=== PATIENT | female | born 1955 | race Hispanic/Latino ===

== ENCOUNTER 2021-06-16 21:02 | Inpatient (IN) | payer MEDICARE ==
[2021-06-16] MEDS ORDERED: MORPHINE 4 MG/1 ML INJ IV ONE (22:13)
[2021-06-16] MEDS ORDERED: SODIUM CHLORIDE 0.9% 1000 ML 1,000 ML IV ONE (22:13)
--- NOTE | 2021-06-16 22:24 | Emergency Department Report ---
ED Female HPI - General Chief complaint: Abdominal Pain Stated complaint: BACK AND ABD PAIN Source: patient, EMS Mode of arrival: Stretcher Limitations: No Limitations - History of Present Illness Initial comments: Patient is a 55-year-old female who presents to the emergency department with complaints of bilateral flank pain, dark urine. Patient states that she has a history of previous bladder cancer and resultant removal of her bladder approximately 3 years ago. She does not currently have a urologist that she follows with. She states her urine was dark for about a day and a half but here her urine appears yellow. She denies any fevers or chills. She also reports she has had some abdominal pain. Symptoms have been present and total for approximately 4 days. - Related Data Allergies Allergy/AdvReac Type Severity Reaction Status Date / Time NSAIDS (Non-Steroidal Allergy Nausea Verified 06/17/21 01:02 Anti-Inflamma Penicillins Allergy Nausea Verified 06/17/21 01:02 ED Review of Systems ROS: Stated complaint: BACK AND ABD PAIN Other details as noted in HPI Constitutional: denies: chills, fever ENT: denies: dental pain Respiratory: denies: cough, shortness of breath Cardiovascular: denies: chest pain Endocrine: no symptoms reported Gastrointestinal: abdominal pain. denies: nausea Genitourinary: denies: urgency, dysuria Musculoskeletal: back pain Skin: denies: rash Neurological: denies: headache, weakness Psychiatric: denies: anxiety, depression Hematological/Lymphatic: denies: easy bleeding ED Past Medical Hx - Past Medical History Previous Medical History?: Yes Hx Hypertension: Yes Additional medical history: Kidney, [place] - Surgical History Past Surgical History?: Yes Additional Surgical History: Back surgery, Knee surgery, Hip surgery with a bar - Social History Smoking Status: Current Every Day Smoker Substance Use Type: None ED Physical Exam - General Limitations: No Limitations General appearance: alert, in no apparent distress - Head Head exam: Present: atraumatic, normocephalic - Eye Eye exam: Present: normal appearance - ENT ENT exam: Present: mucous membranes moist - Neck Neck exam: Present: normal inspection - Respiratory Respiratory exam: Present: normal lung sounds bilaterally. Absent: respiratory distress - Cardiovascular Cardiovascular Exam: Present: regular rate, normal rhythm. Absent: systolic murmur, diastolic murmur, rubs, gallop - GI/Abdominal GI/Abdominal exam: Present: soft, tenderness (RLQ), other (urostomy noted). Absent: distended, guarding, rebound, rigid - Rectal Rectal exam: Present: deferred - Extremities Exam Extremities exam: Present: normal inspection - Back Exam Back exam: Present: CVA tenderness (R), CVA tenderness (L) - Neurological Exam Neurological exam: Present: alert, oriented X3 - Psychiatric Psychiatric exam: Present: normal affect, normal mood - Skin Skin exam: Present: warm, dry, intact, normal color. Absent: rash ED Course Vital Signs 06/16/21 06/16/21 06/16/21 21:30 22:15 22:39 Temperature 98.6 F Pulse Rate 84 73 Respiratory 18 17 18 Rate Blood Pressure 120/80 Blood Pressure 106/79 [Left] O2 Sat by Pulse 96 Oximetry 06/16/21 06/16/21 06/16/21 22:45 23:00 23:09 Temperature Pulse Rate 75 79 Respiratory 9 L 16 18 Rate Blood Pressure 125/74 125/74 Blood Pressure [Left] O2 Sat by Pulse Oximetry 06/17/21 00:10 Temperature Pulse Rate Respiratory 18 Rate Blood Pressure Blood Pressure [Left] O2 Sat by Pulse Oximetry - Reevaluation(s) Reevaluation #1: 06/17/21 01:18 Patient still reporting pain and nausea. Also states that she feels like she cannot walk due to pain. Urinalysis does reveal leukocytes in the urine. Pyelo is considered given flank pain. Antibiotics ordered. I have also spoken with the hospitalist team for admission. ED Medical Decision Making - Lab Data Result diagrams: 06/16/21 23:01 06/16/21 23:01 - Radiology Data Radiology results: report reviewed - Medical Decision Making Patient is a 65-year-old female with history of previous cystectomy due to bladder cancer who presents to the emergency department complaint of flank and abdominal pain as well as dark urine. Differential includes pyelonephritis, nephrolithiasis. Dehydration is also considered. Patient also states she has a history of stage III chronic kidney disease. Plan to give IV fluids and pain control obtain basic labs including urine culture and urinalysis from a clean urostomy bag. Patient does not appear to be septic at this time as she has no fever or tachycardia. Will reassess after initial labs. Critical care attestation.: If time is entered above; I have spent that time in minutes in the direct care of this critically ill patient, excluding procedure time. ED Disposition Clinical Impression: Pyelonephritis, Abdominal pain, Nausea and vomiting Disposition: OP ADMIT IP TO THIS HOSP Is pt being admited?: Yes Does the pt Need Aspirin: No Condition: Stable Instructions: Abdominal Pain (ED) Referrals: PRIMARY CARE, [Primary Care Provider] - 3-5 Days Time of Disposition: 01:00
[2021-06-16 23:33] LABS: Basophils # (Auto) 0.1 K/mm3 (0.0-0.1); Basophils % (Auto) 0.6 % (0.0-1.8); Eosinophils # (Auto) 0.4 K/mm3 (0.0-0.4); Eosinophils % (Auto) 4.5 % (0.0-4.3); Hemoglobin 14.7 gm/dl (10.1-14.3); Lymphocytes # (Auto) 1.8 K/mm3 (1.2-5.4); Lymphocytes % (Auto) 20.4 % (13.4-35.0); Mean Corpuscular HGB Conc 34 % (30-34); Mean Corpuscular Volume 91 fl (79-97); Monocytes % (Auto) 11.2 % (0.0-7.3); Platelet Count 159 K/mm3 (140-440); Red Blood Count 4.82 M/mm3 (3.65-5.03); Red Cell Distribution Width 15.8 % (13.2-15.2)
[2021-06-16 23:54] LABS: Albumin 3.9 g/dL (3.9-5); Calcium 9.7 mg/dL (8.4-10.2)
--- NOTE | 2021-06-16 23:59 | Cat Scan Report ---
CT ABDOMEN AND PELVIS WITHOUT CONTRAST INDICATION / CLINICAL INFORMATION: Complains of bi-lateral flank pain; Hx of bladder cancer removal. Dark urine. TECHNIQUE: Axial CT images were obtained through the abdomen and pelvis without IV contrast. All CT scans at this location are performed using CT dose reduction for ALARA by means of automated exposure control. COMPARISON: None available. FINDINGS: LOWER CHEST: No significant abnormality. LIVER: No significant abnormality. GALLBLADDER: Cholecystectomy. BILE DUCTS: There is mild biliary dilatation. The common bile duct measures 11 mm. there is mild intr ahepatic biliary dilatation. PANCREAS: No significant abnormality. SPLEEN: There are 2 hypodensities in the spleen. Superior hypodensity measures water density and 2 cm and is likely a cyst. More inferior measures 1.9 cm and 22 Hounsfield units and is indeterminate. ADRENALS: No significant abnormality. RIGHT KIDNEY / URETER: No acute abnormality. There is an ileal conduit on the right. LEFT KIDNEY / URETER: Severely atrophic STOMACH / SMALL BOWEL: No acute abnormality. COLON: No significant abnormality. APPENDIX: Not visualized. PERITONEUM: No free fluid. No free air. No fluid collection. LYMPH NODES: No significant adenopathy. AORTA / ARTERIES: Mild atherosclerotic calcification without acute abnormality. IVC / VEINS: No significant abnormality. URINARY BLADDER: Prior cystectomy. There is an ileal conduit REPRODUCTIVE ORGANS: No significant abnormality. ADDITIONAL FINDINGS: None. SKELETAL SYSTEM: No acute abnormality. IMPRESSION: 1. There is no obstruction, inflammation, or free air. The left kidney is severely atrophic. No renal calculi are seen. There is no hydronephrosis. The patient has an ileal conduit. 2. There are 2 hypodensities in the spleen one of which measures water density and is likely a cyst. The other measures above water density and is indeterminate. Signer Name: Samuel Gamboa MD Signed: 06/16/2021 11:55 PM Workstation Name: [id number]
[2021-06-17] MEDS ORDERED: MORPHINE 4 MG/1 ML INJ IV ONE (00:03)
[2021-06-17 00:30] LABS: Bacteria,Urine 1+ /HPF (Negative); Bilirubin,Urine NEG (Negative); Blood,Urine LG (Negative); Color,Urine Yellow (Yellow); Hyaline Casts,Urine 1 /LPF; Mucus,Urine FEW /HPF; Urobilinogen,Urine < 2.0 mg/dL (<2.0)
[2021-06-17] MEDS ORDERED: AZTREONAM/NS 1 GM/50 ML 1 GM/50 ML VIAL IV ONE (00:59)
[2021-06-17] MEDS ORDERED: MORPHINE 2 MG/1 ML INJ IV PRN (01:28)
[2021-06-17] MEDS ORDERED: ACETAMINOPHEN 325 MG TAB PO PRN (01:28)
[2021-06-17] MEDS ORDERED: ALBUTEROL 2.5 MG/3 ML NEBU IH PRN (01:28)
[2021-06-17] MEDS ORDERED: NALOXONE 0.4 MG/1 ML INJ IV PRN (01:28)
[2021-06-17] MEDS ORDERED: cefTRIAXone/NS 1 GM/50 ML 1 GM/50 ML BAG IV SCH (02:00)
--- NOTE | 2021-06-17 02:27 | History and Physical Report ---
History of Present Illness Date of examination: 06/17/21 Date of admission: 06/17/21 01:28 Chief complaint: Bilateral flank pain, discolored urine History of present illness: 65-year-old female who is an ongoing smoker with history of hypertension, bladder cancer, kidney cancer, anxiety/depression and chronic lower back and hip pain who presents [facility] ED with complaints of bilateral flank pain, abdominal pain and discolored urine. Patient states she has been experiencing dark discolored urine in her urostomy bag for the past 4 days. Denies any recent injury/trauma to urostomy site/stoma, or foul smelling urine. Additionally she complains of 8/10 constant sharp bilateral CVA pain and right lower quadrant 7/10 intermittent cramping abdominal pain unrelieved by pain meds. Patient does have history of bladder cancer and is s/p removal of her aleah dder approximately 3 years ago. Her primary care physician is Dr. Cesar Wang. She does not currently have a urologist. Endorses: nausea, abdominal pain, dark discolored urine Denies: Fever, chills, headache, shortness of breath, chest pain, recent injury to stoma site, melena, hematochezia, hemoptysis, or recent sick contacts Past History Past Medical History: hypertension, other (CKD stage III, anxiety, depression, bladder cancer, kidney cancer, chronic lower back and leg pain) Past Surgical History: cholecystectomy, hernia repair, Other (Knee surgery, back surgery x5, hip surgery with bar, cystectomy, urostomy) Social history: single, smoking (Smokes half pack a day), other (Living with friends at the moment) Family history: hypertension Medications and Allergies Allergies Allergy/AdvReac Type Severity Reaction Status Date / Time NSAIDS (Non-Steroidal Allergy Nausea Verified 06/17/21 01:02 Anti-Inflamma Penicillins Allergy Nausea Verified 06/17/21 01:02 Active Meds: Active Medications Acetaminophen (Acetaminophen 325 Mg Tab) 650 mg PO Q4H PRN PRN Reason: Pain MILD(1-3)/Fever >100.5/CUADRA Albuterol (Albuterol 2.5 Mg/3 Ml Nebu) 2.5 mg IH Q3HRT PRN PRN Reason: Shortness Of Breath Docusate Sodium (Docusate Sodium 100 Mg Cap) 100 mg PO BID EZEKIEL Heparin Sodium (Porcine) (Heparin 5,000 Unit/1 Ml Vial) 5,000 unit SUB-Q Q12HR EZEKIEL Hydromorphone HCl (Hydromorphone 1 Mg/1 Ml Inj) 0.5 mg IV Q4H PRN PRN Reason: Pain , Severe (7-10) Ceftriaxone Sodium (Rocephin/Ns 1 Gm/50 Ml) 1 gm in 50 mls @ 100 mls/hr IV Q24H EZEKIEL; Protocol Morphine Sulfate (Morphine 2 Mg/1 Ml Inj) 2 mg IV Q6H PRN PRN Reason: Pain, Moderate (4-6) Naloxone HCl (Naloxone 0.4 Mg/1 Ml Inj) 0.1 mg IV Q2MIN PRN PRN Reason: Res Rate </= 8 or 02 SAT < 92% Nicotine (Nicotine 14 Mg/24 Hr Patch) 14 mg TD QDAY [facility] Ondansetron HCl (Ondansetron 4 Mg/2 Ml Inj) 4 mg IV Q6H PRN PRN Reason: Nausea And Vomiting Sodium Chloride (Sodium Chloride 0.9% 10 Ml Flush Syringe) 10 ml IV BID [facility] Sodium Chloride (Sodium Chloride 0.9% 10 Ml Flush Syringe) 10 ml IV PRN PRN PRN Reason: LINE FLUSH Review of Systems All systems: negative (As noted in HPI) Exam - Physical Exam Narrative exam: Physical exam General appearance: Present: Looks older than stated age, no acute distress, alert and oriented 3, older adult female - EENT Eyes: Present: PERRL, EOM intact ENT: hearing intact, missing teeth - Neck Neck: Present: supple, normal ROM - Respiratory Respiratory effort: Non-labored Respiratory: Clear throughout - Cardiovascular Heart rate: 85 (bpm) Rhythm: Sinus Heart Sounds: Present: S1 & S2. Absent: rub, click - Extremities Extremities: no ischemia, pulses intact, - Peripheral Assessment Peripheral Pulses: within normal limits - Abdominal General gastrointestinal: Right upper quadrant urostomy with pink/red moist stoma, soft, right lower quadrant tenderness, normal bowel sounds - Integumentary Integumentary: Present: warm, dry - Musculoskeletal Musculoskeletal: Able to move all extremities, bilateral CVA tenderness -Neurological Neurological: CN II-XII intact - Psychiatric Psychiatric: cooperative - Constitutional Vitals: Temp Pulse Resp BP Pulse Ox 98.6 F 74 11 L 106/64 96 07/20/21 21:30 06/17/21 02:01 06/17/21 01:45 06/17/21 02:01 06/16/21 21:30 Results - Labs CBC & Chem 7: 06/16/21 23:01 06/16/21 23:01 Labs: Laboratory Last Values WBC 8.7 K/mm3 (4.5-11.0) 06/16/21 23:01 RBC 4.82 M/mm3 (3.65-5.03) 06/16/21 23:01 Hgb 14.7 gm/dl (10.1-14.3) H 06/16/21 23:01 Hct 44.0 % (30.3-42.9) H 06/16/21 23:01 MCV 91 fl (79-97) 06/16/21 23:01 MCH 31 pg (28-32) 06/16/21 23:01 MCHC 34 % (30-34) 06/16/21 23:01 RDW 15.8 % (13.2-15.2) H 06/16/21 23:01 Plt Count 159 K/mm3 (140-440) 06/16/21 23:01 Lymph % (Auto) 20.4 % (13.4-35.0) 06/16/21 23:01 [place] % (Auto) 11.2 % (0.0-7.3) H 06/16/21 23:01 Eos % (Auto) 4.5 % (0.0-4.3) H 06/16/21 23:01 Baso % (Auto) 0.6 % (0.0-1.8) 06/16/21 23:01 Lymph # (Auto) 1.8 K/mm3 (1.2-5.4) 06/16/21 23:01 [place] # (Auto) 1.0 K/mm3 (0.0-0.8) H 06/16/21 23:01 Eos # (Auto) 0.4 K/mm3 (0.0-0.4) 06/16/21 23:01 Baso # (Auto) 0.1 K/mm3 (0.0-0.1) 06/16/21 23:01 Seg Neutrophils % 63.3 % (40.0-70.0) 06/16/21 23:01 Seg Neutrophils # 5.5 K/mm3 (1.8-7.7) 06/16/21 23:01 Sodium 140 mmol/L (137-145) 06/16/21 23:01 Potassium 3.7 mmol/L (3.6-5.0) 06/16/21 23:01 Chloride 102.9 mmol/L (98-107) 06/16/21 23:01 Carbon Dioxide 26 mmol/L (22-30) 06/16/21 23:01 Anion Gap 15 mmol/L 06/16/21 23:01 BUN 22 mg/dL (7-17) H 06/16/21 23:01 Creatinine 1.5 mg/dL (0.6-1.2) H 06/16/21 23:01 Estimated GFR 35 ml/min 06/16/21 23:01 BUN/Creatinine Ratio 15 % 06/16/21 23:01 Glucose 92 mg/dL (65-100) 06/16/21 23:01 Calcium 9.7 mg/dL (8.4-10.2) 06/16/21 23:01 Total Bilirubin 0.30 mg/dL (0.1-1.2) 06/16/21 23:01 AST 13 units/L (5-40) 06/16/21 23:01 ALT 12 units/L (7-56) 06/16/21 23:01 Alkaline Phosphatase 101 units/L (35-129) 06/16/21 23:01 Total Protein 7.4 g/dL (6.3-8.2) 06/16/21 23:01 Albumin 3.9 g/dL (3.9-5) 06/16/21 23:01 Albumin/Globulin Ratio 1.1 % 06/16/21 23:01 Urine Color Yellow (Yellow) 06/16/21 Unknown Urine Turbidity Hazy (Clear) 06/16/21 Unknown Urine pH 6.0 (5.0-7.0) 06/16/21 Unknown Ur Specific [place] 1.010 (1.003-1.030) 06/16/21 Unknown Urine Protein 100 mg/dl mg/dL (Negative) 06/16/21 Unknown Urine Glucose (UA) Neg mg/dL (Negative) 06/16/21 Unknown Urine Ketones Neg mg/dL (Negative) 06/16/21 Unknown Urine Blood Lg (Negative) 06/16/21 Unknown Urine Nitrite Neg (Negative) 06/16/21 Unknown Urine Bilirubin Neg (Negative) 06/16/21 Unknown Urine Urobilinogen < 2.0 mg/dL (<2.0) 06/16/21 Unknown Ur Leukocyte Esterase Lg (Negative) 06/16/21 Unknown Urine WBC (Auto) 54.0 /HPF (0.0-6.0) H 06/16/21 Unknown Urine RBC (Auto) 100.0 /HPF (0.0-6.0) 06/16/21 Unknown U Epithel Cells (Auto) 1.0 /HPF (0-13.0) 06/16/21 Unknown Urine Bacteria (Auto) 1+ /HPF (Negative) 06/16/21 Unknown Hyaline Casts 1 /LPF 06/16/21 Unknown Urine Mucus Few /HPF 06/16/21 Unknown - Imaging and Cardiology Imaging and Cardiology: CT Abd/Pelvis: FINDINGS: LOWER CHEST: No significant abnormality. LIVER: No significant abnormality. GALLBLADDER: Cholecystectomy. BILE DUCTS: There is mild biliary dilatation. The common bile duct measures 11 mm. there is mild intrahepatic biliary dilatation. PANCREAS: No significant abnormality. SPLEEN: There are 2 hypodensities in the spleen. Superior hypodensity measures water density and 2 cm and is likely a cyst. More inferior measures 1.9 cm and 22 Hounsfield units and is indeterminate. ADRENALS: No significant abnormality. RIGHT KIDNEY / URETER: No acute abnormality. There is an ileal conduit on the right. LEFT KIDNEY / URETER: Severely atrophic STOMACH / SMALL BOWEL: No acute abnormality. COLON: No significant abnormality. APPENDIX: Not visualized. PERITONEUM: No free fluid. No free air. No fluid collection. LYMPH NODES: No significant adenopathy. AORTA / ARTERIES: Mild atherosclerotic calcification without acute abnormality. IVC / VEINS: No significant abnormality. URINARY BLADDER: Prior cystectomy. There is an ileal conduit REPRODUCTIVE ORGANS: No significant abnormality. ADDITIONAL FINDINGS: None. SKELETAL SYSTEM: No acute abnormality. IMPRESSION: 1. There is no obstruction, inflammation, or free air. The left kidney is severely atrophic. No renal calculi are seen. There is no hydronephrosis. The patient has an ileal conduit. 2. There are 2 hypodensities in the spleen one of which measures water density and is likely a cyst. The other measures above water density and is indeterminate. Assessment and Plan Assessment and plan: Urinary tract infection -Complicated -?? Pyelonephritis -CT abdomen pelvis shows left kidney is severely atrophic; patient has an ileal conduit; 2 hypodensities in the spleen (one measures water density and is likely a cyst, and the other measures above water density and is indeterminate) -UA positive for UTI -urine wbc 54, leukocyte positive -Cultures pending -on IV Abx Intractable abdominal pain -CT abdomen pelvis negative for acute abnormalities -Pain management -Supportive care Tobacco abuse -Current every day smoker -Smokes half pack per day -Counseled for cessation -Nicotine patch when necessary History of chronic lower back and hip pain -Noted -Supportive care History of CKD stage III -Creatinine 1.5 on admission -Avoid nephrotoxic agents -Renal dose all meds DVT PPX -on Heparin
[2021-06-17] MEDS: HYDROmorphone 1 MG/1 ML INJ IV PRN ×3 (02:52→20:23)
[2021-06-17] MEDS: NICOTINE 14 MG/24 HR PATCH TD SCH ×2 (03:05→10:20)
--- NOTE | 2021-06-17 09:38 | Progress Note ---
Assessment and Plan Assessment and plan: Urinary tract infection/complicated and complex -Complicated -?? Pyelonephritis -CT abdomen pelvis shows left kidney is severely atrophic; patient has an ileal conduit; 2 hypodensities in the spleen (one measures water density and is likely a cyst, and the other measures above water density and is indeterminate) -UA positive for UTI -urine wbc 54, leukocyte positive -Cultures pending -on IV Abx Intractable abdominal pain -CT abdomen pelvis negative for acute abnormalities -Pain management -Supportive care Tobacco abuse -Current every day smoker -Smokes half pack per day -Counseled for cessation -Nicotine patch when necessary History of chronic lower back and hip pain -Noted -Supportive care History of CKD stage III -Creatinine 1.5 on admission -Avoid nephrotoxic agents -Renal dose all meds DVT PPX -on Heparin We will closely monitor the patient and adjust management as needed Plan of care reviewed with the patient and her nurse Follow cultures and adjust as needed History Interval history: I seen and examined the patient at the bedside Patient's chart and medications reviewed Admitted with complicated complex UTI On empiric antibiotics Patient is chronically and critically ill looking Vital signs noted Hospitalist Physical - Constitutional Vitals: Temp Pulse Resp BP Pulse Ox 98.3 F 83 20 92/56 94 06/17/21 04:21 06/17/21 04:21 06/17/21 04:21 06/17/21 06:38 06/17/21 04:21 General appearance: Present: no acute distress, well-nourished - EENT Eyes: Present: PERRL, EOM intact - Neck Neck: Present: supple, normal ROM - Respiratory Respiratory effort: normal Respiratory: bilateral: diminished, negative: rales, rhonchi, wheezing - Cardiovascular Rhythm: regular Heart Sounds: Present: S1 & S2 - Extremities Extremities: no ischemia, No edema - Abdominal General gastrointestinal: soft, non-tender, non-distended, normal bowel sounds - Integumentary Integumentary: Present: clear, warm - Psychiatric Psychiatric: appropriate mood/affect, cooperative - Neurologic Neurologic: CNII-XII intact, moves all extremities Results - Labs CBC & Chem 7: 06/16/21 23:01 06/17/21 14:39 Labs: Laboratory Last Values WBC 8.7 K/mm3 (4.5-11.0) 06/16/21 23:01 RBC 4.82 M/mm3 (3.65-5.03) 06/16/21 23:01 Hgb 14.7 gm/dl (10.1-14.3) H 06/16/21 23:01 Hct 44.0 % (30.3-42.9) H 06/16/21 23:01 MCV 91 fl (79-97) 06/16/21 23:01 MCH 31 pg (28-32) 06/16/21 23:01 MCHC 34 % (30-34) 06/16/21 23:01 RDW 15.8 % (13.2-15.2) H 06/16/21 23:01 Plt Count 159 K/mm3 (140-440) 06/16/21 23:01 Lymph % (Auto) 20.4 % (13.4-35.0) 06/16/21 23:01 [place] % (Auto) 11.2 % (0.0-7.3) H 06/16/21 23:01 Eos % (Auto) 4.5 % (0.0-4.3) H 06/16/21 23:01 Baso % (Auto) 0.6 % (0.0-1.8) 06/16/21 23:01 Lymph # (Auto) 1.8 K/mm3 (1.2-5.4) 06/16/21 23:01 [place] # (Auto) 1.0 K/mm3 (0.0-0.8) H 06/16/21 23:01 Eos # (Auto) 0.4 K/mm3 (0.0-0.4) 06/16/21 23:01 Baso # (Auto) 0.1 K/mm3 (0.0-0.1) 06/16/21 23: Seg Neutrophils % 63.3 % (40.0-70.0) 06/16/21 23: Seg Neutrophils # 5.5 K/mm3 (1.8-7.7) 06/16/21 23:01 Sodium 140 mmol/L (137-145) 06/16/21 23:01 Potassium 3.7 mmol/L (3.6-5.0) 06/16/21 23: Chloride 102.9 mmol/L (98-107) 06/16/21 23:01 Carbon Dioxide 26 mmol/L (22-30) 06/16/21 23:01 Anion Gap 15 mmol/L 06/16/21 23:01 BUN 22 mg/dL (7-17) H 06/16/21 23:01 Creatinine 1.5 mg/dL (0.6-1.2) H 06/16/21 23:01 Estimated GFR 35 ml/min 06/16/21 23:01 BUN/Creatinine Ratio 15 % 06/16/21 23:01 Glucose 92 mg/dL (65-100) 06/16/21 23:01 Calcium 9.7 mg/dL (8.4-10.2) 06/16/21 23:01 Total Bilirubin 0.30 mg/dL (0.1-1.2) 06/16/21 23:01 AST 13 units/L (5-40) 06/16/21 23:01 ALT 12 units/L (7-56) 06/16/21 23:01 Alkaline Phosphatase 101 units/L (35-129) 06/16/21 23:01 Total Protein 7.4 g/dL (6.3-8.2) 06/16/21 23:01 Albumin 3.9 g/dL (3.9-5) 06/16/21 23:01 Albumin/Globulin Ratio 1.1 % 06/16/21 23:01 Urine Color Yellow (Yellow) 06/16/21 Unknown Urine Turbidity Hazy (Clear) 06/16/21 Unknown Urine pH 6.0 (5.0-7.0) 06/16/21 Unknown Ur Specific [place] 1.010 (1.003-1.030) 06/16/21 Unknown Urine Protein 100 mg/dl mg/dL (Negative) 06/16/21 Unknown Urine Glucose (UA) Neg mg/dL (Negative) 06/16/21 Unknown Urine Ketones Neg mg/dL (Negative) 06/16/21 Unknown Urine Blood Lg (Negative) 06/16/21 Unknown Urine Nitrite Neg (Negative) 06/16/21 Unknown Urine Bilirubin Neg (Negative) 06/16/21 Unknown Urine Urobilinogen < 2.0 mg/dL (<2.0) 06/16/21 Unknown Ur Leukocyte Esterase Lg (Negative) 06/16/21 Unknown Urine WBC (Auto) 54.0 /HPF (0.0-6.0) H 06/16/21 Unknown Urine RBC (Auto) 100.0 /HPF (0.0-6.0) 06/16/21 Unknown U Epithel Cells (Auto) 1.0 /HPF (0-13.0) 06/16/21 Unknown Urine Bacteria (Auto) 1+ /HPF (Negative) 06/16/21 Unknown Hyaline Casts 1 /LPF 06/16/21 Unknown Urine Mucus Few /HPF 06/16/21 Unknown Microbiology: Microbiology 06/17/21 02:00 Peripheral/Venous Blood Culture - Preliminary Culture in Progress 06/17/21 01:30 Peripheral/Venous Blood Culture - Preliminary Culture in Progress Leon/IV: Voiding Method Ileal Conduit (Right) Active Medications - Current Medications Current Medications: Generic Name Dose Route Start Last Admin Trade Name Freq PRN Reason Stop Dose Admin Acetaminophen 650 mg 06/17/21 01:28 Acetaminophen 325 Mg Tab PO Q4H PRN Pain MILD(1-3)/Fever >100.5/CUADRA Albuterol 2.5 mg 06/17/21 01:28 Albuterol 2.5 Mg/3 Ml Nebu IH Q3HRT PRN Shortness Of Breath Docusate Sodium 100 mg 06/17/21 10:00 Docusate Sodium 100 Mg Cap PO BID [facility] Heparin Sodium (Porcine) 5,000 unit 06/17/21 10:00 Heparin 5,000 Unit/1 Ml Vial SUB-Q Q12HR [facility] Hydromorphone HCl 0.5 mg 06/17/21 01:28 06/17/21 02:52 Hydromorphone 1 Mg/1 Ml Inj IV 0.5 mg Q4H PRN Administration Pain , Severe (7-10) Ceftriaxone Sodium 1 gm in 50 mls @ 100 mls/hr 06/17/21 22:00 Rocephin/Ns 1 Gm/50 Ml IV Q24HR@2200 [facility] Protocol Morphine Sulfate 2 mg 06/17/21 01:28 Morphine 2 Mg/1 Ml Inj IV Q6H PRN Pain, Moderate (4-6) Naloxone HCl 0.1 mg 06/17/21 01:28 Naloxone 0.4 Mg/1 Ml Inj IV Q2MIN PRN Res Rate </= 8 or 02 SAT < 92% Nicotine 14 mg 06/17/21 02:00 06/17/21 03:05 Nicotine 14 Mg/24 Hr Patch TD 14 mg QDAY EZEKIEL Administration Ondansetron HCl 4 mg 06/17/21 01:28 Ondansetron 4 Mg/2 Ml Inj IV Q6H PRN Nausea And Vomiting Sodium Chloride 10 ml 06/17/21 10:00 Sodium Chloride 0.9% 10 Ml Flush Syringe IV BID EZEKIEL Sodium Chloride 10 ml 06/17/21 01:28 Sodium Chloride 0.9% 10 Ml Flush Syringe IV PRN PRN LINE FLUSH
[2021-06-17] MEDS: METOPROLOL SUCCINATE XL 50 MG TAB PO SCH ×2 (10:20→21:40)
[2021-06-17] MEDS: DOCUSATE SODIUM 100 MG CAP PO SCH ×3 (10:21→21:40)
[2021-06-17] MEDS: HEPARIN 5,000 UNIT/1 ML VIAL SUB-Q SCH ×2 (10:31→21:41)
[2021-06-17] MEDS: ALPRAZolam 1 MG TAB PO SCH ×2 (13:17→20:23)
[2021-06-17 15:27] LABS: Calcium 8.5 mg/dL (8.4-10.2)
[2021-06-17] MEDS ORDERED: SODIUM CHLORIDE 0.9% 500 ML 500 ML IV NR (16:05)
[2021-06-17] MEDS: amLODIPine 5 MG TAB PO SCH (21:40)
[2021-06-17] MEDS: cefTRIAXone/NS 1 GM/50 ML 1 GM/50 ML BAG IV SCH (21:41)
[2021-06-18] MEDS: HYDROmorphone 1 MG/1 ML INJ IV PRN (05:48)
[2021-06-18] MEDS: ALPRAZolam 1 MG TAB PO SCH ×3 (09:02→20:36)
[2021-06-18] MEDS: METOPROLOL SUCCINATE XL 50 MG TAB PO SCH ×3 (10:30→21:57)
[2021-06-18] MEDS: NICOTINE 14 MG/24 HR PATCH TD SCH (10:30)
[2021-06-18] MEDS: DOCUSATE SODIUM 100 MG CAP PO SCH ×2 (10:32→21:58)
[2021-06-18] MEDS: HEPARIN 5,000 UNIT/1 ML VIAL SUB-Q SCH ×2 (10:32→21:59)
[2021-06-18] MEDS: oxyCODONE /ACETAMINOPHEN 5-325MG TAB PO PRN ×2 (10:33→16:11)
--- NOTE | 2021-06-18 18:21 | Progress Note ---
Assessment and Plan Assessment and plan: Urinary tract infection/complicated and complex -Complicated -?? Pyelonephritis -CT abdomen pelvis shows left kidney is severely atrophic; patient has an ileal conduit; 2 hypodensities in the spleen (one measures water density and is likely a cyst, and the other measures above water density and is indeterminate) -UA positive for UTI -urine wbc 54, leukocyte positive -Cultures pending -on IV Abx Intractable abdominal pain -CT abdomen pelvis negative for acute abnormalities -Pain management -Supportive care Tobacco abuse -Current every day smoker -Smokes half pack per day -Counseled for cessation -Nicotine patch when necessary History of chronic lower back and hip pain -Noted -Supportive care History of CKD stage III -Creatinine 1.5 on admission -Avoid nephrotoxic agents -Renal dose all meds DVT PPX -on Heparin We will closely monitor the patient and adjust management as needed Plan of care reviewed with the patient and her nurse Follow cultures and adjust as needed History Interval history: I have seen and examined the patient at the bedside Patient's chart and medications reviewed Patient feels slightly better No new complaints Vital signs noted Hospitalist Physical - Constitutional Vitals: Temp Pulse Resp BP Pulse Ox 97.8 F 64 16 118/71 95 06/18/21 11:46 06/18/21 11:46 06/18/21 11:46 06/18/21 11:46 06/18/21 11:46 General appearance: Present: no acute distress, well-nourished - EENT Eyes: Present: PERRL, EOM intact - Neck Neck: Present: supple, normal ROM - Respiratory Respiratory effort: normal Respiratory: bilateral: diminished, negative: rales, rhonchi, wheezing - Cardiovascular Rhythm: regular Heart Sounds: Present: S1 & S2 - Extremities Extremities: no ischemia, No edema - Abdominal General gastrointestinal: soft, non-tender, non-distended, normal bowel sounds - Integumentary Integumentary: Present: clear, warm - Psychiatric Psychiatric: appropriate mood/affect, cooperative - Neurologic Neurologic: CNII-XII intact, moves all extremities Results - Labs CBC & Chem 7: 06/16/21 23:01 06/17/21 14:39 Labs: Laboratory Last Values WBC 8.7 K/mm3 (4.5-11.0) 06/16/21 23:01 RBC 4.82 M/mm3 (3.65-5.03) 06/16/21 23:01 Hgb 14.7 gm/dl (10.1-14.3) H 06/16/21 23:01 Hct 44.0 % (30.3-42.9) H 06/16/21 23:01 MCV 91 fl (79-97) 06/16/21 23:01 MCH 31 pg (28-32) 06/16/21 23:01 MCHC 34 % (30-34) 06/16/21 23:01 RDW 15.8 % (13.2-15.2) H 06/16/21 23:01 Plt Count 159 K/mm3 (140-440) 06/16/21 23:01 Lymph % (Auto) 20.4 % (13.4-35.0) 06/16/21 23:01 [place] % (Auto) 11.2 % (0.0-7.3) H 06/16/21 23:01 Eos % (Auto) 4.5 % (0.0-4.3) H 06/16/21 23:01 Baso % (Auto) 0.6 % (0.0-1.8) 06/16/21 23:01 Lymph # (Auto) 1.8 K/mm3 (1.2-5.4) 06/16/21 23:01 [place] # (Auto) 1.0 K/mm3 (0.0-0.8) H 06/16/21 23:01 Eos # (Auto) 0.4 K/mm3 (0.0-0.4) 06/16/21 23:01 Baso # (Auto) 0.1 K/mm3 (0.0-0.1) 06/16/21 23:01 Seg Neutrophils % 63.3 % (40.0-70.0) 06/16/21 23:01 Seg Neutrophils # 5.5 K/mm3 (1.8-7.7) 06/16/21 23:01 Sodium 139 mmol/L (137-145) 06/17/21 14:39 Potassium 3.7 mmol/L (3.6-5.0) 06/17/21 14:39 Chloride 106.0 mmol/L (98-107) 06/17/21 14:39 Carbon Dioxide 20 mmol/L (22-30) L 06/17/21 14:39 Anion Gap 17 mmol/L 06/17/21 14:39 BUN 20 mg/dL (7-17) H 06/17/21 14:39 Creatinine 1.6 mg/dL (0.6-1.2) H 06/17/21 14:39 Estimated GFR 32 ml/min 06/17/21 14:39 BUN/Creatinine Ratio 13 % 06/17/21 14:39 Glucose 91 mg/dL (65-100) 06/17/21 14:39 Calcium 8.5 mg/dL (8.4-10.2) 06/17/21 14:39 Total Bilirubin 0.30 mg/dL (0.1-1.2) 06/16/21 23:01 AST 13 units/L (5-40) 06/16/21 23:01 ALT 12 units/L (7-56) 06/16/21 23:01 Alkaline Phosphatase 101 units/L (35-129) 06/16/21 23:01 Total Protein 7.4 g/dL (6.3-8.2) 06/16/21 23:01 Albumin 3.9 g/dL (3.9-5) 06/16/21 23:01 Albumin/Globulin Ratio 1.1 % 06/16/21 23:01 Urine Color Yellow (Yellow) 06/16/21 Unknown Urine Turbidity Hazy (Clear) 06/16/21 Unknown Urine pH 6.0 (5.0-7.0) 06/16/21 Unknown Ur Specific [place] 1.010 (1.003-1.030) 06/16/21 Unknown Urine Protein 100 mg/dl mg/dL (Negative) 06/16/21 Unknown Urine Glucose (UA) Neg mg/dL (Negative) 06/16/21 Unknown Urine Ketones Neg mg/dL (Negative) 06/16/21 Unknown Urine Blood Lg (Negative) 06/16/21 Unknown Urine Nitrite Neg (Negative) 06/16/21 Unknown Urine Bilirubin Neg (Negative) 06/16/21 Unknown Urine Urobilinogen < 2.0 mg/dL (<2.0) 06/16/21 Unknown Ur Leukocyte Esterase Lg (Negative) 06/16/21 Unknown Urine WBC (Auto) 54.0 /HPF (0.0-6.0) H 06/16/21 Unknown Urine RBC (Auto) 100.0 /HPF (0.0-6.0) 06/16/21 Unknown U Epithel Cells (Auto) 1.0 /HPF (0-13.0) 06/16/21 Unknown Urine Bacteria (Auto) 1+ /HPF (Negative) 06/16/21 Unknown Hyaline Casts 1 /LPF 06/16/21 Unknown Urine Mucus Few /HPF 06/16/21 Unknown Microbiology: Microbiology 06/17/21 00:33 Urine,Suprapubic Urine Culture - Preliminary 06/17/21 02:00 Peripheral/Venous Blood Culture - Preliminary NO GROWTH AFTER 24 HOURS 06/17/21 01:30 Peripheral/Venous Blood Culture - Preliminary NO GROWTH AFTER 24 HOURS Leon/IV: Voiding Method Nephrostomy (Right) Active Medications - Current Medications Current Medications: Generic Name Dose Route Start Last Admin Trade Name Freq PRN Reason Stop Dose Admin Acetaminophen 650 mg 06/17/21 01:28 Acetaminophen 325 Mg Tab PO Q4H PRN Pain MILD(1-3)/Fever >100.5/CUADRA Albuterol 2.5 mg 06/17/21 01:28 Albuterol 2.5 Mg/3 Ml Nebu IH Q3HRT PRN Shortness Of Breath Alprazolam 1 mg 06/17/21 14:00 06/18/21 15:12 Alprazolam 1 Mg Tab PO 1 mg TID EZEKIEL Administration Amlodipine Besylate 5 mg 06/17/21 22:00 06/17/21 21:40 Amlodipine 5 Mg Tab PO Not Given QHS EZEKIEL Docusate Sodium 100 mg 06/17/21 10:00 06/18/21 10:32 Docusate Sodium 100 Mg Cap PO 100 mg BID EZEKIEL Administration Heparin Sodium (Porcine) 5,000 unit 06/17/21 10:00 06/18/21 10:32 Heparin 5,000 Unit/1 Ml Vial SUB-Q 5,000 unit Q12HR EZEKIEL Administration Hydromorphone HCl 0.5 mg 06/17/21 01:28 06/18/21 05:48 Hydromorphone 1 Mg/1 Ml Inj IV 0.5 mg Q4H PRN Administration Pain , Severe (7-10) Ceftriaxone Sodium 1 gm in 50 mls @ 100 mls/hr 06/17/21 22:00 06/17/21 21:41 Rocephin/Ns 1 Gm/50 Ml IV 100 mls/hr Q24HR@2200 EZEKIEL Administration Protocol Metoprolol Succinate 50 mg 06/17/21 10:00 06/18/21 10:39 Metoprolol Succinate Xl 50 Mg Tab PO Not Given BID EZEKIEL Naloxone HCl 0.1 mg 06/17/21 01:28 Naloxone 0.4 Mg/1 Ml Inj IV Q2MIN PRN Res Rate </= 8 or 02 SAT < 92% Nicotine 14 mg 06/17/21 02:00 06/18/21 10:30 Nicotine 14 Mg/24 Hr Patch TD 14 mg QDAY EZEKIEL Administration Ondansetron HCl 4 mg 06/17/21 01:28 Ondansetron 4 Mg/2 Ml Inj IV Q6H PRN Nausea And Vomiting Oxycodone/Acetaminophen 1 tab 06/17/21 14:00 06/18/21 16:11 Oxycodone /Acetaminophen 5-325mg Tab PO 1 tab Q6H PRN Administration Pain, Moderate (4-6) Sodium Chloride 10 ml 06/17/21 10:00 06/18/21 10:34 Sodium Chloride 0.9% 10 Ml Flush Syringe IV 10 ml BID EZEKIEL Administration Sodium Chloride 10 ml 06/17/21 01:28 Sodium Chloride 0.9% 10 Ml Flush Syringe IV PRN PRN LINE FLUSH
--- NOTE | 2021-06-18 19:40 | Progress Note ---
Assessment and Plan Assessment and plan: --Urinary tract infection/complicated and complex Complicated complex due to atrophic kidney and ileal conduit Initial cultures contaminant, repeat urine cultures pending Continue empiric -CT abdomen pelvis shows left kidney is severely atrophic; patient has an ileal conduit; 2 hypodensities in the spleen (one measures water density and is likely a cyst, and the other measures above water density and is indeterminate) --Intractable abdominal pain -CT abdomen pelvis negative for acute abnormalities Supportive care --Ongoing tobacco abuse Smoking cessation counseling done advised nicotine patch -Nicotine patch when necessary --History of chronic lower back and hip pain Continue pain medications Advised pain management upon discharge --History of CKD stage III Closely monitor renal function, avoid nephrotoxins Consult nephrology if needed --DVT PPX; Subcu Heparin We will closely monitor the patient and adjust management as needed Plan of care reviewed with the patient and her nurse Follow cultures and adjust as needed Brief history ; 65-year-old female patient with complicated complex UTI, is receiving empiric antibiotics Follow repeat urine cultures and sensitivities, adjust antibiotics Possible discharge in 1 to 2 days if stable 06/18/2021; urine cultures are contamination Requested repeat cultures, continue current empiric antibiotics 06/19/2021; patient feels slightly better, follow culture sensitivities Adjust antibiotics, possible discharge in 1 to 2 days if stable History Interval history: I seen and examined the patient at the bedside Patient's chart and medications reviewed Patient feels slightly better Complains of some pain Vital signs noted Hospitalist Physical - Constitutional Vitals: Temp Pulse Resp BP Pulse Ox 97.8 F 64 16 118/71 96 06/18/21 11:46 06/18/21 11:46 06/18/21 11:46 06/18/21 11:46 06/18/21 13:00 General appearance: Present: no acute distress, well-nourished - EENT Eyes: Present: PERRL, EOM intact - Neck Neck: Present: supple, normal ROM - Respiratory Respiratory effort: normal Respiratory: bilateral: diminished, negative: rales, rhonchi, wheezing - Cardiovascular Rhythm: regular Heart Sounds: Present: S1 & S2 - Extremities Extremities: no ischemia, No edema Peripheral Pulses: within normal limits - Abdominal General gastrointestinal: soft, non-tender, non-distended, normal bowel sounds - Integumentary Integumentary: Present: clear, warm - Psychiatric Psychiatric: appropriate mood/affect, cooperative - Neurologic Neurologic: CNII-XII intact, moves all extremities Results - Labs CBC & Chem 7: 06/16/21 23:01 06/19/21 05:12 Labs: Laboratory Last Values WBC 8.7 K/mm3 (4.5-11.0) 06/16/21 23:01 RBC 4.82 M/mm3 (3.65-5.03) 06/16/21 23:01 Hgb 14.7 gm/dl (10.1-14.3) H 06/16/21 23:01 Hct 44.0 % (30.3-42.9) H 06/16/21 23:01 MCV 91 fl (79-97) 06/16/21 23:01 MCH 31 pg (28-32) 06/16/21 23:01 MCHC 34 % (30-34) 06/16/21 23:01 RDW 15.8 % (13.2-15.2) H 06/16/21 23:01 Plt Count 159 K/mm3 (140-440) 06/16/21 23:01 Lymph % (Auto) 20.4 % (13.4-35.0) 06/16/21 23:01 [place] % (Auto) 11.2 % (0.0-7.3) H 06/16/21 23:01 Eos % (Auto) 4.5 % (0.0-4.3) H 06/16/21 23:01 Baso % (Auto) 0.6 % (0.0-1.8) 06/16/21 23:01 Lymph # (Auto) 1.8 K/mm3 (1.2-5.4) 06/16/21 23:01 [place] # (Auto) 1.0 K/mm3 (0.0-0.8) H 06/16/21 23:01 Eos # (Auto) 0.4 K/mm3 (0.0-0.4) 06/16/21 23:01 Baso # (Auto) 0.1 K/mm3 (0.0-0.1) 06/16/21 23:01 Seg Neutrophils % 63.3 % (40.0-70.0) 06/16/21 23:01 Seg Neutrophils # 5.5 K/mm3 (1.8-7.7) 06/16/21 23:01 Sodium 139 mmol/L (137-145) 06/17/21 14:39 Potassium 3.7 mmol/L (3.6-5.0) 06/17/21 14:39 Chloride 106.0 mmol/L (98-107) 06/17/21 14:39 Carbon Dioxide 20 mmol/L (22-30) L 06/17/21 14:39 Anion Gap 17 mmol/L 06/17/21 14:39 BUN 20 mg/dL (7-17) H 06/17/21 14:39 Creatinine 1.6 mg/dL (0.6-1.2) H 06/17/21 14:39 Estimated GFR 32 ml/min 06/17/21 14:39 BUN/Creatinine Ratio 13 % 06/17/21 14:39 Glucose 91 mg/dL (65-100) 06/17/21 14:39 Calcium 8.5 mg/dL (8.4-10.2) 06/17/21 14:39 Total Bilirubin 0.30 mg/dL (0.1-1.2) 06/16/21 23:01 AST 13 units/L (5-40) 06/16/21 23:01 ALT 12 units/L (7-56) 06/16/21 23:01 Alkaline Phosphatase 101 units/L (35-129) 06/16/21 23:01 Total Protein 7.4 g/dL (6.3-8.2) 06/16/21 23:01 Albumin 3.9 g/dL (3.9-5) 06/16/21 23:01 Albumin/Globulin Ratio 1.1 % 06/16/21 23:01 Urine Color Yellow (Yellow) 06/16/21 Unknown Urine Turbidity Hazy (Clear) 06/16/21 Unknown Urine pH 6.0 (5.0-7.0) 06/16/21 Unknown Ur Specific [place] 1.010 (1.003-1.030) 06/16/21 Unknown Urine Protein 100 mg/dl mg/dL (Negative) 06/16/21 Unknown Urine Glucose (UA) Neg mg/dL (Negative) 06/16/21 Unknown Urine Ketones Neg mg/dL (Negative) 06/16/21 Unknown Urine Blood Lg (Negative) 06/16/21 Unknown Urine Nitrite Neg (Negative) 06/16/21 Unknown Urine Bilirubin Neg (Negative) 06/16/21 Unknown Urine Urobilinogen < 2.0 mg/dL (<2.0) 06/16/21 Unknown Ur Leukocyte Esterase Lg (Negative) 06/16/21 Unknown Urine WBC (Auto) 54.0 /HPF (0.0-6.0) H 06/16/21 Unknown Urine RBC (Auto) 100.0 /HPF (0.0-6.0) 06/16/21 Unknown U Epithel Cells (Auto) 1.0 /HPF (0-13.0) 06/16/21 Unknown Urine Bacteria (Auto) 1+ /HPF (Negative) 06/16/21 Unknown Hyaline Casts 1 /LPF 06/16/21 Unknown Urine Mucus Few /HPF 06/16/21 Unknown Microbiology: Microbiology 06/17/21 00:33 Urine,Suprapubic Urine Culture - Preliminary 06/17/21 02:00 Peripheral/Venous Blood Culture - Preliminary NO GROWTH AFTER 24 HOURS 06/17/21 01:30 Peripheral/Venous Blood Culture - Preliminary NO GROWTH AFTER 24 HOURS Leon/IV: Voiding Method Nephrostomy (Right) Active Medications - Current Medications Current Medications: Generic Name Dose Route Start Last Admin Trade Name Freq PRN Reason Stop Dose Admin Acetaminophen 650 mg 06/17/21 01:28 Acetaminophen 325 Mg Tab PO Q4H PRN Pain MILD(1-3)/Fever >100.5/CUADRA Albuterol 2.5 mg 06/17/21 01:28 Albuterol 2.5 Mg/3 Ml Nebu IH Q3HRT PRN Shortness Of Breath Alprazolam 1 mg 06/17/21 14:00 06/18/21 15:12 Alprazolam 1 Mg Tab PO 1 mg TID EZEKIEL Administration Amlodipine Besylate 5 mg 06/17/21 22:00 06/17/21 21:40 Amlodipine 5 Mg Tab PO Not Given QHS EZEKIEL Docusate Sodium 100 mg 06/17/21 10:00 06/18/21 10:32 Docusate Sodium 100 Mg Cap PO 100 mg BID EZEKIEL Administration Heparin Sodium (Porcine) 5,000 unit 06/17/21 10:00 06/18/21 10:32 Heparin 5,000 Unit/1 Ml Vial SUB-Q 5,000 unit Q12HR EZEKIEL Administration Hydromorphone HCl 0.5 mg 06/17/21 01:28 06/18/21 05:48 Hydromorphone 1 Mg/1 Ml Inj IV 0.5 mg Q4H PRN Administration Pain , Severe (7-10) Ceftriaxone Sodium 1 gm in 50 mls @ 100 mls/hr 06/17/21 22:00 06/17/21 21:41 Rocephin/Ns 1 Gm/50 Ml IV 100 mls/hr Q24HR@2200 EZEKIEL Administration Protocol Sodium Chloride 1,000 mls @ 100 mls/hr 06/18/21 19:30 Nacl 0.9% 1000 Ml IV DIRECT EZEKIEL Metoprolol Succinate 50 mg 06/17/21 10:00 06/18/21 10:39 Metoprolol Succinate Xl 50 Mg Tab PO Not Given BID EZEKIEL Naloxone HCl 0.1 mg 06/17/21 01:28 Naloxone 0.4 Mg/1 Ml Inj IV Q2MIN PRN Res Rate </= 8 or 02 SAT < 92% Nicotine 14 mg 06/17/21 02:00 06/18/21 10:30 Nicotine 14 Mg/24 Hr Patch TD 14 mg QDAY EZEKIEL Administration Ondansetron HCl 4 mg 06/17/21 01:28 Ondansetron 4 Mg/2 Ml Inj IV Q6H PRN Nausea And Vomiting Oxycodone/Acetaminophen 1 tab 06/17/21 14:00 06/18/21 16:11 Oxycodone /Acetaminophen 5-325mg Tab PO 1 tab Q6H PRN Administration Pain, Moderate (4-6) Sodium Chloride 10 ml 06/17/21 10:00 06/18/21 10:34 Sodium Chloride 0.9% 10 Ml Flush Syringe IV 10 ml BID EZEKIEL Administration Sodium Chloride 10 ml 06/17/21 01:28 Sodium Chloride 0.9% 10 Ml Flush Syringe IV PRN PRN LINE FLUSH
[2021-06-18] MEDS: amLODIPine 5 MG TAB PO SCH (21:57)
[2021-06-18] MEDS: SODIUM CHLORIDE 0.9% 1000 ML 1,000 ML IV SCH (21:58)
[2021-06-18] MEDS: cefTRIAXone/NS 1 GM/50 ML 1 GM/50 ML BAG IV SCH (21:59)
[2021-06-18] MEDS ORDERED: GABAPENTIN 300 MG CAP PO ONE (22:30)
[2021-06-19] MEDS: oxyCODONE /ACETAMINOPHEN 5-325MG TAB PO PRN ×2 (01:54→10:41)
[2021-06-19 06:08] LABS: Calcium 8.5 mg/dL (8.4-10.2)
[2021-06-19] MEDS: ALPRAZolam 1 MG TAB PO SCH ×3 (07:53→22:16)
[2021-06-19] MEDS: HYDROmorphone 1 MG/1 ML INJ IV PRN ×4 (07:53→22:17)
[2021-06-19] MEDS: SODIUM CHLORIDE 0.9% 1000 ML 1,000 ML IV SCH ×2 (07:56→22:18)
[2021-06-19] MEDS: NICOTINE 14 MG/24 HR PATCH TD SCH (10:40)
[2021-06-19] MEDS: HEPARIN 5,000 UNIT/1 ML VIAL SUB-Q SCH ×2 (10:41→22:17)
[2021-06-19] MEDS: DOCUSATE SODIUM 100 MG CAP PO SCH ×2 (10:41→22:16)
[2021-06-19] MEDS: METOPROLOL SUCCINATE XL 50 MG TAB PO SCH ×2 (10:41→22:00)
[2021-06-19] MEDS: amLODIPine 5 MG TAB PO SCH (22:00)
[2021-06-19] MEDS: cefTRIAXone/NS 1 GM/50 ML 1 GM/50 ML BAG IV SCH (22:16)
[2021-06-20] MEDS: ONDANSETRON 4 MG/2 ML INJ IV PRN (02:05)
[2021-06-20] MEDS: HYDROmorphone 1 MG/1 ML INJ IV PRN ×4 (06:52→23:53)
[2021-06-20] MEDS: ALPRAZolam 1 MG TAB PO SCH ×3 (08:31→21:44)
[2021-06-20] MEDS: DOCUSATE SODIUM 100 MG CAP PO SCH ×2 (11:04→21:44)
[2021-06-20] MEDS: NICOTINE 14 MG/24 HR PATCH TD SCH (11:05)
[2021-06-20] MEDS: METOPROLOL SUCCINATE XL 50 MG TAB PO SCH ×2 (11:06→21:41)
[2021-06-20] MEDS: HEPARIN 5,000 UNIT/1 ML VIAL SUB-Q SCH ×2 (11:08→21:44)
[2021-06-20] MEDS: SODIUM CHLORIDE 0.9% 1000 ML 1,000 ML IV SCH (14:20)
[2021-06-20] MEDS: oxyCODONE /ACETAMINOPHEN 5-325MG TAB PO PRN (19:55)
[2021-06-20] MEDS: cefTRIAXone/NS 1 GM/50 ML 1 GM/50 ML BAG IV SCH (21:44)
[2021-06-20] MEDS: amLODIPine 5 MG TAB PO SCH (21:44)
[2021-06-21] MEDS: ONDANSETRON 4 MG/2 ML INJ IV PRN ×2 (02:53→08:25)
[2021-06-21] MEDS: HYDROmorphone 1 MG/1 ML INJ IV PRN (05:58)
[2021-06-21] MEDS: SODIUM CHLORIDE 0.9% 1000 ML 1,000 ML IV SCH (08:26)
[2021-06-21] MEDS: ALPRAZolam 1 MG TAB PO SCH ×2 (08:27→14:34)
[2021-06-21] MEDS: HEPARIN 5,000 UNIT/1 ML VIAL SUB-Q SCH (09:35)
[2021-06-21] MEDS: METOPROLOL SUCCINATE XL 50 MG TAB PO SCH (09:35)
[2021-06-21] MEDS: NICOTINE 14 MG/24 HR PATCH TD SCH (09:35)
[2021-06-21] MEDS: DOCUSATE SODIUM 100 MG CAP PO SCH (09:35)
--- NOTE | 2021-06-21 09:36 | Progress Note ---
Assessment and Plan Assessment and Plan --Urinary tract infection/complicated and complex Complicated complex due to atrophic kidney and ileal conduit Initial cultures contaminant, repeat urine cultures pending Continue empiric -CT abdomen pelvis shows left kidney is severely atrophic; patient has an ileal conduit; 2 hypodensities in the spleen (one measures water density and is likely a cyst, and the other measures above water density and is indeterminate) --Intractable abdominal pain -CT abdomen pelvis negative for acute abnormalities Supportive care --Ongoing tobacco abuse Smoking cessation counseling done advised nicotine patch -Nicotine patch when necessary --History of chronic lower back and hip pain Continue pain medications Advised pain management upon discharge --History of CKD stage III Closely monitor renal function, avoid nephrotoxins Consult nephrology if needed --DVT PPX; Subcu Heparin We will closely monitor the patient and adjust management as needed Plan of care reviewed with the patient and her nurse Follow cultures and adjust as needed Subjective Date of service: 06/20/21 Principal diagnosis: Urinary tract infection Interval history: Brief history ; 65-year-old female patient with complicated complex UTI, is receiving empiric antibiotics Follow repeat urine cultures and sensitivities, adjust antibiotics Possible discharge in 1 to 2 days if stable 06/18/2021; urine cultures are contamination Requested repeat cultures, continue current empiric antibiotics 06/19/2021; patient feels slightly better, follow culture sensitivities Adjust antibiotics, possible discharge in 1 to 2 days if stable 06/20/21 Patient is slightly better Afebrile Objective - Constitutional Vitals: Vital Signs - 12hr 06/20/21 06/21/21 21:41 05:33 Temperature 97.8 F Pulse Rate 55 L 59 L Respiratory 16 Rate Blood Pressure 143/86 135/83 O2 Sat by Pulse 95 Oximetry General appearance: Present: no acute distress, well-nourished - EENT Eyes: PERRL, EOM intact ENT: hearing intact, clear oral mucosa Ears: bilateral: normal - Neck Neck: supple, normal ROM - Respiratory Respiratory effort: normal Respiratory: bilateral: CTA - Breasts Breasts: normal - Cardiovascular Heart rate: 76 Rhythm: regular Heart Sounds: Present: S1 & S2. Absent: gallop, rub Extremities: pulses intact, No edema, normal color, Full ROM - Gastrointestinal General gastrointestinal: Present: soft, non-tender, non-distended, normal bowel sounds - Genitourinary Female genitourinary: normal - Integumentary Integumentary: clear, warm, dry - Musculoskeletal Musculoskeletal: 1, strength equal bilaterally - Neurologic Neurologic: moves all extremities - Psychiatric Psychiatric: memory intact, appropriate mood/affect, intact judgment & insight - Labs CBC & Chem 7: 06/16/21 23:01 06/19/21 05:12
[2021-06-21] MEDS: oxyCODONE /ACETAMINOPHEN 5-325MG TAB PO PRN (14:11)
--- NOTE | 2021-06-21 14:34 | Discharge Summary ---
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 Hospitalization Condition: Stable Hospital course: Subjective Date of service: 06/21/21 Principal diagnosis: Urinary tract infection Interval history: Brief history ; 65-year-old female patient with complicated complex UTI, is receiving empiric antibiotics Follow repeat urine cultures and sensitivities, adjust antibiotics Possible discharge in 1 to 2 days if stable 06/18/2021; urine cultures are contamination Requested repeat cultures, continue current empiric antibiotics 06/19/2021; patient feels slightly better, follow culture sensitivities Adjust antibiotics, possible discharge in 1 to 2 days if stable 06/20/21 Patient is slightly better Afebrile 06/21/2021 Patient feeling a lot better Wants to go home Assessment and Plan --Urinary tract infection/complicated and complex Complicated complex due to atrophic kidney and ileal conduit Initial cultures contaminant, repeat urine cultures pending Continue empiric -CT abdomen pelvis shows left kidney is severely atrophic; patient has an ileal conduit; 2 hypodensities in the spleen (one measures water density and is likely a cyst, and the other measures above water density and is indeterminate) --Intractable abdominal pain -CT abdomen pelvis negative for acute abnormalities Supportive care --Ongoing tobacco abuse Smoking cessation counseling done advised nicotine patch -Nicotine patch when necessary --History of chronic lower back and hip pain Continue pain medications Advised pain management upon discharge --History of CKD stage III Closely monitor renal function, avoid nephrotoxins Consult nephrology if needed --DVT PPX; Subcu Heparin We will closely monitor the patient and adjust management as needed Plan of care reviewed with the patient and her nurse Follow cultures and adjust as needed Disposition: DC-01 TO HOME OR SELFCARE Final Discharge Diagnosis (Prints w/discharge instructions): Pyelonephritis. Sirs Time spent for discharge: 32 minutes - Discharge Diagnoses (1) Abdominal pain Status: Acute (2) Nausea and vomiting Status: Acute (3) Pyelonephritis Status: Acute Core Measure Documentation - Palliative Care Palliative Care/ Comfort Measures: Not Applicable - Core Measures Any of the following diagnoses?: none Exam - Constitutional Vitals: Temp Pulse Resp BP Pulse Ox 97.8 F 59 L 20 135/83 95 06/21/21 05:33 06/21/21 05:33 06/21/21 14:11 06/21/21 05:33 06/21/21 05:33 General appearance: Present: no acute distress, well-nourished - EENT Eyes: Present: PERRL ENT: hearing intact, clear oral mucosa - Neck Neck: Present: supple, normal ROM - Respiratory Respiratory effort: normal Respiratory: bilateral: CTA - Cardiovascular Heart Sounds: Present: S1 & S2. Absent: rub, click - Extremities Extremities: pulses symmetrical, No edema Peripheral Pulses: within normal limits - Abdominal General gastrointestinal: Present: soft, non-tender, non-distended, normal bowel sounds Female genitourinary: Present: normal - Integumentary Integumentary: Present: clear, warm, dry - Musculoskeletal Musculoskeletal: gait normal, strength equal bilaterally - Psychiatric Psychiatric: appropriate mood/affect, intact judgment & insight - Neurologic Neurologic: CNII-XII intact, moves all extremities Plan Activity: no restrictions Diet: regular Follow up with: PRIMARY CARE, [Primary Care Provider] - 3-5 Days
[2021-06-21 14:56] VITALS: BP 117/69
== END 2021-06-21 16:30 | disposition home or self-care (01) | DRG 690 ==
LOC: ED 21:02 → 3A 06-17 01:28 → OBSVTOIN 06-17 10:46
PROVIDERS: ADMIT Internal Medicine Geriatric Medicine; ATTEND Internal Medicine
DX: N10 Acute pyelonephritis (principal); R65.10 Systemic inflammatory response syndrome (SIRS) of non-infectious origin without acute organ dysfunction; N18.30 Chronic kidney disease, stage 3 unspecified; I12.9 Hypertensive chronic kidney disease with stage 1 through stage 4 chronic kidney disease, or unspecified chronic kidney disease; F41.9 Anxiety disorder, unspecified; F32.9 Major depressive disorder, single episode, unspecified; F17.210 Nicotine dependence, cigarettes, uncomplicated; M54.5 Low back pain; Z90.49 Acquired absence of other specified parts of digestive tract; Z82.49 Family history of ischemic heart disease and other diseases of the circulatory system; Z71.6 Tobacco abuse counseling; Z85.51 Personal history of malignant neoplasm of bladder; Z88.8 Allergy status to other drugs, medicaments and biological substances; Z88.0 Allergy status to penicillin; Z85.528 Personal history of other malignant neoplasm of kidney
CPT/HCPCS: 36415; 74176; 80048; 80053; 81001; 85025; 87040; 87086; G0378; J0696; J1170; J1644; J2270; J2405; J7030; J7040